=== PATIENT | male | born 1955 | race Caucasian/White ===

== ENCOUNTER 2020-12-08 02:08 | Observation (INO) | payer BC ==
--- NOTE | 2020-12-08 02:40 | ED ---
Chest Pain HPI - General Chief Complaint: Chest Pain Stated Complaint: Chest Pain Time Seen by Provider: 12/08/20 02:14 Source: patient, EMS, RN notes reviewed, old records reviewed Mode of arrival: EMS Limitations: no limitations - History of Present Illness Initial Comments: This is a 65-year-old male to the ER for evaluation patient accepted in transfer for chest pain, patient has history of chest pain history of CAD coming in for chest pain. Patient has no significant medical history and per transfer paperwork patient did have elevated troponin chest pain at prior facility. MD Complaint: chest pain -: hour(s) Onset: during rest, during exertion Pain Location: left chest Pain Radiation: none Severity: moderate Severity scale (1-10): 4 Quality: aching, heaviness Consistency: constant Improves With: nothing Worsens With: nothing Context: other (none) Other Symptoms: palpitations Treatments Prior to Arrival: none - Related Data Allergies Allergy/AdvReac Type Severity Reaction Status Date / Time No Known Allergies Allergy Verified 12/08/20 02:48 Review of Systems ROS Statement: Those systems with pertinent positive or pertinent negative responses have been documented in the HPI. ROS Other: All systems not noted in ROS Statement are negative. EKG Findings - EKG Comments: EKG Findings:: EKG shows sinus rhythm 61 year 176 QRS 116 QTC 417 Past Medical History Past Medical History: No Reported History History of Any Multi-Drug Resistant Organisms: None Reported Additional Past Surgical History / Comment(s): Gall bladder removed "before 1999" Past Psychological History: No Psychological Hx Reported Smoking Status: Former smoker Past Alcohol Use History: None Reported Past Drug Use History: Marijuana General Exam Limitations: no limitations General appearance: alert, in no apparent distress Head exam: Present: atraumatic, normocephalic, normal inspection Eye exam: Present: normal appearance, PERRL, EOMI. Absent: scleral icterus, conjunctival injection, periorbital swelling ENT exam: Present: normal exam, mucous membranes moist Neck exam: Present: normal inspection. Absent: tenderness, meningismus, lymphadenopathy Respiratory exam: Present: normal lung sounds bilaterally. Absent: respiratory distress, wheezes, rales, rhonchi, stridor Cardiovascular Exam: Present: regular rate, normal rhythm, normal heart sounds. Absent: systolic murmur, diastolic murmur, rubs, gallop, clicks GI/Abdominal exam: Present: soft, normal bowel sounds. Absent: distended, tenderness, guarding, rebound, rigid Extremities exam: Present: normal inspection, full ROM, normal capillary refill. Absent: tenderness, pedal edema, joint swelling, calf tenderness Back exam: Present: normal inspection Neurological exam: Present: alert, oriented X3, CN II-XII intact Psychiatric exam: Present: normal affect, normal mood Skin exam: Present: warm, dry, intact, normal color. Absent: rash Course Vital Signs 12/08/20 02:10 Temperature 98.0 F Pulse Rate 63 Respiratory 18 Rate Blood Pressure 129/86 O2 Sat by Pulse 97 Oximetry - Reevaluation(s) Reevaluation #1: 12/08/20 03:04 Medical record is reviewed 12/08/20 03:05 Transfer paperwork is reviewed Also spoke with transferring physician Reevaluation #2: 12/08/20 03:04 Patient has persistent chest pain here in the ER although improved from initial Reevaluation #3: 12/08/20 03:05 Patient informed of results and plan, questions answered - Consultations Consultation #1: Spoke with EM to agrees to admit the patient Chest Pain MDM - MDM 65 male to the ER for chest pain, mildly elevated troponin at prior facility, patient be admitted for chest pain observation and treatment Disposition Clinical Impression: Chest pain, Acute non-ST elevation myocardial infarction (NSTEMI) Disposition: ADMITTED IP TO THIS HOSP Condition: Undetermined Is patient prescribed a controlled substance at d/c from ED?: No Referrals: None,Stated [Primary Care Provider] - 1-2 days
[2020-12-08] MEDS ORDERED: ASPIRIN 81 MG PO STA (03:02)
[2020-12-08] MEDS ORDERED: NITROGLYCERIN SL TABS 0.4 MG TAB SUBLINGUAL PRN ×3 (03:02→15:49)
[2020-12-08] MEDS ORDERED: MORPHINE SULFATE 4 MG/ML SYRINGE IV PRN (03:02)
[2020-12-08] MEDS ORDERED: HEPARIN SOD,PORK IN 0.45% NACL 25,000 UNIT in 0.45% NACL 1 250ML.BAG IV SCH (03:15)
[2020-12-08] MEDS: SODIUM CHLORIDE 0.9% 1,000 ML IV SCH (03:40)
[2020-12-08] MEDS ORDERED: ONDANSETRON 4 MG/2 ML VIAL IVP PRN (10:01)
[2020-12-08] MEDS ORDERED: METOPROLOL TARTRATE 12.5 MG TAB PO SCH (10:45)
[2020-12-08] MEDS ORDERED: METOPROLOL TARTRATE 25 MG TAB PO SCH (10:45)
[2020-12-08] MEDS ORDERED: ATORVASTATIN 80 MG TAB PO STA (10:58)
[2020-12-08] MEDS ORDERED: ALPRAZolam 0.5 MG TAB PO PRN (10:58)
[2020-12-08] MEDS ORDERED: ALPRAZolam 0.25 MG TAB PO PRN (10:58)
[2020-12-08] MEDS ORDERED: ASPIRIN 325 MG TAB PO STA (10:58)
[2020-12-08] MEDS ORDERED: SODIUM CHLORIDE 0.9% 1,000 ML in EMPTY BAG 1 BAG IV ONE (10:58)
--- NOTE | 2020-12-08 12:01 | ECHOF ---
Referral Reason:LV function, elevated troponins MEASUREMENTS -------- HEIGHT: 172.7 cm WEIGHT: 96.2 kg BP: RVIDd: 3.1 cm (< 3.3) IVSd: 1.3 cm (0.6 - 1.1) LVIDd: 4.2 cm (3.9 - 5.3) LVPWd: 1.2 cm (0.6 - 1.1) IVSs: 1.8 cm LVIDs: 2.4 cm LVPWs: 1.7 cm LAESV Index (A-L): 13.06 ml/m Ao Diam: 4.3 cm (2.0 - 3.7) AV Cusp: 2.4 cm (1.5 - 2.6) LA Diam: 2.6 cm (2.7 - 3.8) MV EXCURSION: 21.171 mm (> 18.000) MV EF SLOPE: 107 mm/s (70 - 150) EPSS: 0.8 cm MV E Anil: 0.63 m/s MV DecT: 279 ms MV A Anil: 0.58 m/s MV E/A Ratio: 1.09 AR PHT: 483 ms RAP: 5.00 mmHg RVSP: 22.41 mmHg FINDINGS -------- This was a technically good study. The left ventricular size is normal. There is mild concentric left ventricular hypertrophy. Overa ll left ventricular systolic function is moderately impaired with, an EF between 35 - 40 %. Normal LAP Grade 1 Diastolic Dysfunction. Apical anterior LV wall motion is hypokinetic. Apical lateral LV wall motion is hypokinetic. Apical inferior LV wall motion is hypokinetic. Apical septum LV wall motion is hypokinetic. Septal Hypokinesis The right ventricle is normal in size. The left atrial size is normal. Normal LA size by volume 22+/-6 ml/m2. The right atrial size is normal. Lumason used Aortic valve is trileaflet and is mildly thickened. There is mild aortic regurgitation. The mitral valve is normal. The mitral valve leaflets are mildly thickened. There is trace mitral regurgitation. The tricuspid valve appears structurally normal. Trace tricuspid regurgitation present. Right richard tricular systolic pressure is normal at < 35 mmHg. Trace/mild (physiologic) pulmonic regurgitation. 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 IVC Not well visulized. There is no pericardial effusion. CONCLUSIONS -------- 1. The left ventricular size is normal. 2. There is mild concentric left ventricular hypertrophy. 3. Overall left ventricular systolic function is moderately impaired with, an EF between 35 - 40 %. 4. Normal LAP Grade 1 Diastolic Dysfunction. 5. Apical anterior LV wall motion is hypokinetic. 6. Apical lateral LV wall motion is hypokinetic. 7. Apical inferior LV wall motion is hypokinetic. 8. Apical septum LV wall motion is hypokinetic. 9. Septal Hypokinesis 10. Aortic valve is trileaflet and is mildly thickened. 11. There is mild aortic regurgitation. 12. The mitral valve leaflets are mildly thickened. 13. There is trace mitral regurgitation. 14. Trace tricuspid regurgitation present. 15. Trace/mild (physiologic) pulmonic regurgitation. 16. 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 17. There is no pericardial effusion. PIT HOIST OPERATOR: Savita Oneill RDCS
[2020-12-08 12:04] LABS: Glucose,Whole Blood 262 mg/dL (75-99)
[2020-12-08] MEDS: INSULIN ASPART (NovoLOG) 100 UNIT/ML VIAL SQ SCH ×3 (12:08→20:25)
--- NOTE | 2020-12-08 13:12 | P.CRDCN ---
History of Present Illness Consult date: 12/08/20 History of present illness: HISTORY OF PRESENT ILLNESS: This is a 65-year-old male with a past medical history significant for marijuana use and family history of coronary artery disease. 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 We have been asked to see the patient in consultation for elevated troponin. Patient examined at the bedside. Patient was transferred from [facility] secondary to abnormal troponins. Patient initially presented to hospitals due to abdominal pain. Patient states the pain occurred after he ate yesterday on 2 separate occasions. He states he then developed pain in his left arm and his chest. Patient does report increased pain when he presses on his chest. He currently denies shortness of breath. He reports mild chest discomfort at the time of examination. EKG reveals sinus mechanism with T wave inversions in anterolateral leads Laboratory data: Troponin 1.440. 1.870. Current home cardiac medications include none Echocardiogram completed reveals ejection fraction 35-40%, apical anterior, apical lateral, apical inferior, and apical septal LV wall hypokinesis, septal hypokinesis, trace mitral regurgitation, and trace tricuspid regurgitation. REVIEW OF SYSTEMS: At the time of my exam: CONSTITUTIONAL: Denies fever or chills. HEENT: Denies blurred vision, vision changes, or eye pain. Denies hemoptysis CARDIOVASCULAR: Denies chest pain. Denies orthopnea. Denies PND. Denies palpitations RESPIRATORY: Denies shortness of breath. GASTROINTESTINAL: Denies abdominal pain. Denies nausea or vomiting. HEMATOLOGIC: Denies bleeding disorders. GENITOURINARY: Denies any blood in urine. SKIN: Denies pruitis. Denies rash. PHYSICAL EXAM: VITAL SIGNS: Reviewed. GENERAL: Well-developed in no acute distress. HEENT: Head is normocephalic. Pupils are equal, round. Sclerae anicteric. Mucous membranes of the mouth are moist. Neck supple. No JVD or thyromegaly LUNGS: Respirations even and unlabored. Lungs essentially clear to auscultation bilaterally. HEART: Regular rate and rhythm. S1 and S2 heard. ABDOMEN: Soft. Nondistended. Nontender. EXTREMITIES: Normal range of motion. No clubbing or cyanosis. Peripheral pulses intact. No lower extremity edema NEUROLOGIC: Awake and alert. Oriented x 3. ASSESSMENT: Non-ST elevated myocardial infarction Marijuana use Family history of coronary artery disease PLAN: Continue IV heparin Add metoprolol, aspirin, and lipitor Patient to undergo cardiac cath today with Dr. Pollack Further recommendations pending patient course Nurse practitioner note has been reviewed by physician. Signing provider agrees with the documented findings, assessment, and plan of care. Past Medical History Past Medical History: No Reported History History of Any Multi-Drug Resistant Organisms: None Reported Additional Past Surgical History / Comment(s): Gall bladder removed "before 1999" Past Psychological History: No Psychological Hx Reported Smoking Status: Former smoker Past Alcohol Use History: None Reported Past Drug Use History: Marijuana Medications and Allergies Home Medications Medication Instructions Recorded Confirmed Type No Known Home Medications 12/08/20 12/08/20 History Allergies Allergy/AdvReac Type Severity Reaction Status Date / Time No Known Allergies Allergy Verified 12/08/20 07:03 Physical Exam Vitals: Vital Signs Temp Pulse Pulse Resp BP BP Pulse Ox 12/08/20 12:00 97.8 F 63 16 117/74 95 12/08/20 09:58 98.0 F 63 16 116/82 94 L 12/08/20 08:00 98.1 F 57 L 16 113/78 94 L 12/08/20 06:30 61 16 127/85 99 12/08/20 03:43 68 16 127/85 98 12/08/20 02:10 98.0 F 63 18 129/86 97 Intake and Output 12/07/20 12/08/20 12/08/20 22:59 06:59 14:59 Intake Total 64.006 Balance 64.006 Intake: Intake, IV Titration 64.006 Amount Heparin Sod,Pork in 0.45% 64.006 NaCl 25,000 unit In 0.45 % NaCl 1 250ml.bag @ 10.4 UNITS/KG/HR 10.001 mls/ hr IV .[facility]H [facility] Rx#: [id number] Other: Weight 96.162 kg Results Cardiac Enzymes 12/08/20 12/08/20 Range/Units 04:30 07:23 Troponin I 1.440 H* 1.870 H* (0.000-0.034) ng/mL Coagulation 12/08/20 Range/Units 09:09 APTT 31.2 H (22.0-30.0) sec Current Medications Generic Name Dose Route Start Last Admin Trade Name Freq PRN Reason Stop Dose Admin Alprazolam 0.25 mg 12/08/20 10:58 Alprazolam 0.25 Mg Tab PO Q6HR PRN Mild Anxiety Alprazolam 0.5 mg 12/08/20 10:58 Alprazolam 0.5 Mg Tab PO Q6HR PRN Moderate Anxiety Aspirin 81 mg 12/09/20 09:00 Aspirin 81 Mg PO DAILY YANETH Atorvastatin Calcium 80 mg 12/08/20 21:00 Atorvastatin 80 Mg Tab PO HS YANETH Sodium Chloride 1,000 mls @ 20 mls/hr 12/08/20 03:15 12/08/20 03:40 Saline 0.9% IV 20 mls/hr .Q24H YANETH Administration Heparin Sodium/Sodium Chloride 250 mls @ 10.001 mls/hr 12/08/20 03:15 12/08/20 10:00 25,000 unit/ Sodium Chloride IV 13.4 units/kg/hr .Q24H YANETH 12.886 mls/hr Titration Protocol 10.4 UNITS/KG/HR Sodium Chloride 1,000 ml/ IV 1,000 mls @ 96.162 mls/hr 12/08/20 10:58 12/08/20 11:16 Solution IV 12/08/20 21:21 96.162 mls/hr .[id number] ONE Administration 1 ML/KG/HR Heparin Sodium (Porcine) 10, 1,001 mls @ 999 mls/hr 12/09/20 07:00 000 unit/ Sodium Chloride IRRIGATION 12/09/20 23:00 ONCE PRN INTRA-OP Heparin Sodium (Porcine) 2,500 250.5 mls @ 250 mls/hr 12/09/20 07:00 unit/ Sodium Chloride IRRIGATION 12/09/20 23:00 ONCE PRN INTRA-OP Insulin Aspart 0 unit 12/08/20 12:30 12/08/20 12:08 Insulin Aspart (Novolog) 100 Unit/Ml Vial SQ 4 unit ACHS YANETH Administration Protocol Metoprolol Tartrate 12.5 mg 12/08/20 10:45 12/08/20 11:15 Metoprolol Tartrate 12.5 Mg Tab PO 12.5 mg BID YANETH Administration Morphine Sulfate 4 mg 12/08/20 03:02 Morphine Sulfate 4 Mg/Ml Syringe IV Q4HR PRN Chest Pain Nitroglycerin 0.4 mg 12/08/20 03:02 Nitroglycerin Sl Tabs 0.4 Mg Tab SUBLINGUAL Q5M PRN Chest Pain Ondansetron HCl 4 mg 12/08/20 10:01 12/08/20 10:18 Ondansetron 4 Mg/2 Ml Vial IVP 4 mg Q6HR PRN Administration Nausea And Vomiting Intake and Output 12/07/20 12/08/20 12/08/20 22:59 06:59 14:59 Intake Total 64.006 Balance 64.006 Intake: Intake, IV Titration 64.006 Amount Heparin Sod,Pork in 0.45% 64.006 NaCl 25,000 unit In 0.45 % NaCl 1 250ml.bag @ 10.4 UNITS/KG/HR 10.001 mls/ hr IV .Q24H [facility] Rx#: [id number] Other: Weight 96.162 kg
[2020-12-08] MEDS ORDERED: LIDOCAINE 1% INJ 10MG/ML (20 ML MDV) ONE (13:31)
[2020-12-08] MEDS ORDERED: fentaNYL (PF) 50 MCG/ML 2 ML AMP ONE (13:31)
[2020-12-08] MEDS: MIDAZOLAM 2 MG/2 ML VIAL IVP ONE ×2 (13:38→14:48)
[2020-12-08] MEDS ORDERED: LIDOCAINE 1% INJ 10MG/ML (20 ML MDV) SQ ONE (13:38)
[2020-12-08] MEDS ORDERED: fentaNYL (PF) 50 MCG/ML 2 ML AMP IVP ONE (13:38)
[2020-12-08] MEDS ORDERED: IV FLUID CONTINUATION 1,000 ML IV ONE (13:41)
--- NOTE | 2020-12-08 14:22 | CC ---
CARDIAC CATHETERIZATION REPORT INDICATION: Acute non ST-segment elevation LA. PROCEDURE NOTE: After obtaining informed consent, left heart catheterization and coronary angiogram were performed via the right femoral artery using standard Amanda catheters. The patient tolerated the procedure well without any obvious immediate complications. Patient received moderate conscious sedation. Total sedation time was 13 minutes. FINDINGS: HEMODYNAMICS: Left ventricular end-diastolic pressure is 8 to 10 mm. There is no significant gradient across the aortic valve. LEFT VENTRICULOGRAM: Not performed. ANGIOGRAPHIC DATA: The left main coronary artery: Left main coronary artery is a normal-sized vessel and is free of stenosis. Divides into left anterior descending coronary artery and circumflex coronary artery. CIRCUMFLEX CORONARY ARTERY: Circumflex coronary artery is a nondominant vessel and the AV groove circ shows about 70% focal stenosis. LEFT ANTERIOR DESCENDING CORONARY ARTERY: Proximal LAD shows a 90% focal stenosis. Mid LAD shows another focal 90% stenosis. RIGHT CORONARY ARTERY: Right coronary artery is a large dominant vessel and is free of significant disease. CONCLUSION: 90% stenosis involving proximal and mid LAD and 70% stenosis involving circumflex coronary artery. PLAN: Patient will undergo angioplasty with stent placement of LAD and we will manage the circ lesion medically and perform a stress test down the road and if he has ischemia, consider revascularization. MMODL / IJN: [id number] /
[2020-12-08] MEDS ORDERED: PRASUGREL 10 MG TAB ONE (14:36)
[2020-12-08] MEDS ORDERED: PRASUGREL 10 MG TAB PO ONE (14:43)
[2020-12-08] MEDS ORDERED: HEPARIN SODIUM 1,000 UN/ML (10ML VL) ONE (14:44)
[2020-12-08] MEDS: HEPARIN SODIUM 1,000 UN/ML (10ML VL) IV ONE ×2 (14:44→15:40)
[2020-12-08] MEDS ORDERED: IOPAMIDOL-370 125ML BTL INJ ONE ×2 (15:04→15:37)
[2020-12-08] MEDS ORDERED: MIDAZOLAM 2 MG/2 ML VIAL IVP ONE (15:26)
[2020-12-08] MEDS ORDERED: RX INFO: IV CONTRAST WAS GIVEN 1 EACH MISC MISCELLANE PRN (15:49)
[2020-12-08] MEDS ORDERED: ZOLPIDEM 5 MG TAB PO PRN (15:49)
[2020-12-08] MEDS ORDERED: ATROPINE SULFATE 0.1 MG/ML 10ML SYRINGE IV PRN (15:49)
[2020-12-08] MEDS ORDERED: MAG HYDROX/AL HYDROX/SIMETH 30 ML CUP PO PRN (15:49)
[2020-12-08] MEDS ORDERED: SODIUM CHLORIDE 0.9% 1,000 ML IV SCH (16:00)
--- NOTE | 2020-12-08 16:23 | PTCA ---
PERCUTANEOUSTRANS CORORONARY ANGIOGRAPHY Mr. Kan is a 65-year-old male who has not seen a physician in a while. He presented with symptoms of chest pain and evidence of non-STEMI. He underwent cardiac catheterization by Dr. Pollack and was found to have a heavily calcified LAD with significant obstructive disease. In view of that, recommendation was made regarding angioplasty and stenting. The procedure as well as its risks and the complications were discussed with the patient, who was in full understanding and agreement. PROCEDURE: A 6-[place] FL4-1/2 guiding catheter was introduced into the system. After stenting the left main, a 0.014 balanced medium weight J-wire was advanced across the lesion and positioned distally. Subsequently a 3.0 x 12 mm NC Trek balloon was advanced. It could not cross the distal lesion. The proximal lesion was dilated at 10 atmospheres. Following that the balloon was removed and a 2.0 x 12 mm Trek balloon was advanced, and inflation in the distal lesion at 10 atmospheres was done. Following that the balloon was removed and the NC 3.0 x 12 was advanced and inflations in distal stent at maximum of 12 atmospheres were done. Following that, the balloon was removed and a 3.25 x 38 mm Xience Skypoint was advanced, deployed and post-dilated at 16 atmospheres. Following that the balloon was removed and an IVUS [place] Eye catheter was introduced and images were obtained. Following that, the catheter was removed and a 4.0 x 20 mm NC Trek balloon was advanced. Inflations throughout the stent were done at maximum of 14 atmospheres. Following that the balloon was removed. The guidewire was removed. Images were obtained and repeated. Those images revealed stable successful stenting. At that point, the patient complained of some shoulder discomfort. In view of that, the guiding catheter was reintroduced and the vessel was rewired. The IVUS catheter was reintroduced. Images were obtained and revealed no evidence of dissection. At that point his symptoms resolved. The guiding catheter, the balloon and the guidewire were removed. The sheath was removed. Hemostasis was obtained with deployment of an Angio- Seal. There was no immediate complication. The patient was returned to his room in stable condition. Of note, the patient received a total of 9000 units of intravenous heparin. His ACT was followed and he received an oral loading dose of Effient. RESULTS: Successful stenting of a long segment of the proximal, heavily calcified LAD with reduction of stenosis from 95% to 0%. RECOMMENDATIONS: Patient will be continued on aspirin, Effient, beta cristofer, CORBY inhibitor and statin. The importance of dual antiplatelet treatment was discussed with the patient, who is in full understanding and agreement. Duration of the procedure was 49 minutes. FABY / AMARILYS: [id number] / MTDD
[2020-12-08 17:52] LABS: Glucose,Whole Blood 167 mg/dL (75-99)
[2020-12-08] MEDS: METOPROLOL TARTRATE 25 MG TAB PO SCH (20:25)
[2020-12-08 20:26] LABS: Glucose,Whole Blood 233 mg/dL (75-99)
[2020-12-08] MEDS ORDERED: ATORVASTATIN 80 MG TAB PO SCH (21:00)
[2020-12-08 22:18] LABS: Appearance,Urine Clear (Clear); Bilirubin,Urine Negative (Negative); Blood,Urine Negative (Negative); Color,Urine Yellow; Glucose,Urine (UA) 4+ (Negative); Ketones,Urine Negative (Negative); Leukocyte Esterase,Urine Negative (Negative); Nitrite,Urine Negative (Negative); Protein,Urine Negative (Negative); Specific Gravity,Urine 1.034 (1.001-1.035); Urobilinogen,Urine <2.0 mg/dL (<2.0)
--- NOTE | 2020-12-09 01:38 | P.HPIM ---
History of Present Illness H&P Date: 12/08/20 Chief Complaint: Elevated Troponins, transfer for [place] Mr. Kan is a 65-year-old male with significant family history of coronary artery disease, marijuana use transferred from [facility] for elevation of troponins. Patient states that he initially went to the hospital for complaints of abdominal pain, he thought that it was related to his food that he ate. Eventually patient started to have left-sided chest pain and arm pain with mild nausea. The patient did not throw up. He denies having any dizziness or loss of consciousness. Patient denies having any difficulty in breathing associated with the chest pain. Patient states that he does not take any medications at home and does not follow-up with. Patient denies having any fevers chills or rigors. No cough or difficulty breathing. No sick contacts or recent travel. Patient denies having lower extremity edema. He denies having any headache, blurring of vision, hearing loss, speech abnormalities. No neck pain or back pain. He denies having any abdominal pain nausea vomiting or diarrhea. No dysuria or hematuria. In the ER patient had an EKG notable for sinus rhythm. He had an echocardiogram done showing ejection fraction of 35 to 40% with grade 1 diastolic dysfunction and global hypokinesis. On reviewing his labs his troponins were elevated at 1.44 and repeat of 1.87. Cardiology was consulted and the patient was taken to the [facility] later this afternoon and he had successful stenting of long segment of proximal heavily calcified LAD and the patient was initiated on aspirin, beta-cristofer, CORBY inhibitor and statin and Effient. Review of Systems REVIEW OF SYSTEMS: CONSTITUTIONAL: No fever, no malaise, no fatigue. HEENT: No headache, no neck stiffness, no blurring of vision CARDIOVASCULAR: As per HPI PULMONARY: No cough or difficulty in breathing GASTROINTESTINAL: No Abdominal pain nausea vomiting or diarrhea NEUROLOGICAL: No weakness of extremities HEMATOLOGICAL: Denies any bleeding or petechiae. GENITOURINARY: Denies any burning micturition, frequency, or urgency. MUSCULOSKELETAL/RHEUMATOLOGICAL: Denies any joint pain, swelling, or any muscle pain. ENDOCRINE: Denies polyuria polydipsia or heat or cold intolerance The rest of the 14-point review of systems is negative. Past Medical History Past Medical History: No Reported History History of Any Multi-Drug Resistant Organisms: None Reported Additional Past Surgical History / Comment(s): Gall bladder removed "before 1999" Past Psychological History: No Psychological Hx Reported Smoking Status: Former smoker Past Alcohol Use History: None Reported Past Drug Use History: Marijuana Medications and Allergies Home Medications Medication Instructions Recorded Confirmed Type Aspirin 81 mg PO DAILY #30 chew 12/09/20 Rx Atorvastatin [Lipitor] 80 mg PO HS #30 tab 12/09/20 Rx Metoprolol Tartrate [Lopressor] 25 mg PO BID #60 tab 12/09/20 Rx Nitroglycerin Sl Tabs [Nitrostat] 0.4 mg SUBLINGUAL Q5M PRN #20 tab 12/09/20 Rx Prasugrel [Effient] 10 mg PO DAILY #30 tab 12/09/20 Rx Spironolactone [Aldactone] 25 mg PO DAILY #30 tab 12/09/20 Rx lisinopriL [Zestril] 2.5 mg PO BID #60 tab 12/09/20 Rx Allergies Allergy/AdvReac Type Severity Reaction Status Date / Time No Known Allergies Allergy Verified 12/08/20 07:03 Physical Exam Vitals: Vital Signs Temp Pulse Pulse Resp BP BP Pulse Ox 12/08/20 16:55 55 L 16 115/77 98 12/08/20 16:40 56 L 16 118/77 98 12/08/20 16:25 54 L 16 108/74 98 12/08/20 16:10 54 L 16 119/67 98 12/08/20 15:55 58 L 16 125/82 98 12/08/20 12:00 97.8 F 63 16 117/74 95 12/08/20 09:58 98.0 F 63 16 116/82 94 L 12/08/20 08:00 98.1 F 59 L 16 113/78 94 L 12/08/20 06:30 61 16 127/85 99 12/08/20 03:43 68 16 127/85 98 12/08/20 02:10 98.0 F 63 18 129/86 97 Intake and Output 12/08/20 12/08/20 12/08/20 06:59 14:59 22:59 Intake Total 164.006 Output Total 1000 Balance 164.006 -1000 Intake: IV 100 Intake, IV Titration 64.006 Amount Heparin Sod,Pork in 0.45% 64.006 NaCl 25,000 unit In 0.45 % NaCl 1 250ml.bag @ 10.4 UNITS/KG/HR 10.001 mls/ hr IV .Q24H [facility] Rx#: [id number] Output: Urine 1000 Other: # Voids 1 Weight 96.162 kg PHYSICAL EXAMINATION: GENERAL: Comfortably lying up in the bed appears to be no acute distress. Warm to touch, acutely ill-appearing HEENT: Pupils are round and equally reacting to light. EOMI. No scleral icterus. No conjunctival pallor. CARDIOVASCULAR: S1 and S2 present. No murmurs, rubs, or gallops. PULMONARY: Bilateral breath sounds positive. No wheeze or crackles.. ABDOMEN: Soft,non -tender, normal bowel sounds. No guarding or rigidity. MUSCULOSKELETAL: No joint swelling or deformity. EXTREMITIES: No edema NEUROLOGICAL: Gross neurological examination did not reveal any focal deficits. SKIN:No rash Results CBC & Chem 7: 12/09/20 08:03 12/09/20 08:03 Labs: Abnormal Lab Results - Last 24 Hours (Table) 12/08/20 12/08/20 12/08/20 Range/Units 04:30 07:23 09:09 APTT 31.2 H (22.0-30.0) sec POC Glucose (mg/dL) (75-99) mg/dL Troponin I 1.440 H* 1.870 H* (0.000-0.034) ng/mL 12/08/20 Range/Units 12:03 APTT (22.0-30.0) sec POC Glucose (mg/dL) 262 H (75-99) mg/dL Troponin I (0.000-0.034) ng/mL Assessment and Plan Assessment: ASSESSMENT Non-ST elevation MD Significant family history of coronary artery disease Marijuana use PLAN: Patient had an echocardiogram done showing ejection fraction of 35 to 40%, his troponins were elevated. Patient was taken to [facility] and earlier this afternoon had stenting of LAD and started on dual antiplatelet therapy, statin, beta-cristofer, CORBY inhibitor. We will repeat a.m. labs. Further recommendations depending on the progress of the patient.
[2020-12-09 01:43] VITALS: RESP 18
[2020-12-09] MEDS: SODIUM CHLORIDE 0.9% 1,000 ML IV SCH (05:23)
[2020-12-09 06:13] LABS: Glucose,Whole Blood 220 mg/dL (75-99)
[2020-12-09] MEDS: INSULIN ASPART (NovoLOG) 100 UNIT/ML VIAL SQ SCH ×2 (06:31→12:33)
[2020-12-09] MEDS ORDERED: HEPARIN SODIUM,PORCINE 10,000 UNIT in SODIUM CHLORIDE 0.9% 1,000 ML IRRIGATION PRN (07:00)
[2020-12-09] MEDS ORDERED: HEPARIN SODIUM,PORCINE 2,500 UNIT in SODIUM CHLORIDE 0.9% 250 ML IRRIGATION PRN (07:00)
[2020-12-09 08:39] LABS: Basophils % (A) 0 %; Eosinophils # (A) 0.2 k/uL (0-0.7); Eosinophils % (A) 2 %; HCT 49.2 % (39.0-53.0); HGB 16.6 gm/dL (13.0-17.5); Lymphocytes % (A) 17 %; MCH 33.1 pg (25.0-35.0); MCHC 33.7 g/dL (31.0-37.0); MCV 98.2 fL (80.0-100.0); Mean Platelet Volume 7.7; Monocytes # (A) 0.7 k/uL (0-1.0); Monocytes % (A) 6 %; Neutrophils # (A) 8.9 k/uL (1.3-7.7); Neutrophils % (A) 75 %; Platelet Count 301 k/uL (150-450); RBC 5.01 m/uL (4.30-5.90); RDW 12.6 % (11.5-15.5); WBC 11.9 k/uL (3.8-10.6)
[2020-12-09 08:49] LABS: African American GFR (CKD) >90 (>60 ml/min/1.73 sqM); Anion Gap 7 mmol/L; Blood Urea Nitrogen 23 mg/dL (9-20); Calcium 9.8 mg/dL (8.4-10.2); Carbon Dioxide 30 mmol/L (22-30); Chloride 101 mmol/L (98-107); Glucose 196 mg/dL (74-99); Non-African American GFR(CKD) >90 (>60 ml/min/1.73 sqM); Potassium 4.2 mmol/L (3.5-5.1); Sodium 138 mmol/L (137-145)
[2020-12-09] MEDS ORDERED: PRASUGREL 10 MG TAB PO SCH (09:00)
[2020-12-09] MEDS ORDERED: FAMOTIDINE 20 MG/2 ML VIAL IV SCH (09:00)
[2020-12-09] MEDS ORDERED: ASPIRIN 325 MG TAB PO SCH (09:00)
[2020-12-09] MEDS ORDERED: ASPIRIN 81 MG PO SCH ×2 (09:00)
[2020-12-09] MEDS ORDERED: SPIRONOLACTONE 25 MG TAB PO SCH (09:00)
[2020-12-09] MEDS: METOPROLOL TARTRATE 25 MG TAB PO SCH (09:11)
[2020-12-09 10:29] VITALS: TEMP 98.7
[2020-12-09 11:38] VITALS: BMI 27.1
[2020-12-09 11:44] LABS: Glucose,Whole Blood 225 mg/dL (75-99)
[2020-12-09 13:03] VITALS: BP 143/76; PULSE 61
--- NOTE | 2020-12-09 14:14 | P.PN ---
Subjective Progress Note Date: 12/09/20 HISTORY OF PRESENT ILLNESS: This is a 65-year-old male with a past medical history significant for marijuana use and family history of coronary artery disease. Patient does not follow with a plexiglas former. We have been asked to see the patient in consultation for elevated troponin. Patient examined at the bedside. Patient was transferred from [facility] secondary to abnormal troponins. Patient initially presented to hospitals due to abdominal pain. Patient states the pain occurred after he ate yesterday on 2 separate occasions. He states he then developed pain in his left arm and his chest. Patient does report increased pain when he presses on his chest. He currently denies shortness of breath. He reports mild chest discomfort at the time of examination. EKG reveals sinus mechanism with T wave inversions in anterolateral leads Laboratory data: Troponin 1.440. 1.870. Current home cardiac medications include none Echocardiogram completed reveals ejection fraction 35-40%, apical anterior, apical lateral, apical inferior, and apical septal LV wall hypokinesis, septal hypokinesis, trace mitral regurgitation, and trace tricuspid regurgitation. 12/09/2020 Patient is status post cardiac catheterization with PCI to the LAD. Patient examined this morning at the bedside. Patient denies chest pain or pressure. He denies shortness of breath. Vital signs are stable. He is hoping to be discharged home today. PHYSICAL EXAM: VITAL SIGNS: Reviewed. GENERAL: Well-developed in no acute distress. HEENT: Head is normocephalic. Pupils are equal, round. Sclerae anicteric. Mucous membranes of the mouth are moist. Neck supple. No JVD or thyromegaly LUNGS: Respirations even and unlabored. Lungs essentially clear to auscultation bilaterally. HEART: Regular rate and rhythm. S1 and S2 heard. ABDOMEN: Soft. Nondistended. Nontender. EXTREMITIES: Normal range of motion. No clubbing or cyanosis. Peripheral pulse s intact. No lower extremity edema. Right groin soft with no hematoma noted. NEUROLOGIC: Awake and alert. Oriented x 3. ASSESSMENT: Non-ST elevated myocardial infarction, status post PCI to LAD Marijuana use Family history of coronary artery disease PLAN: Continue dual antiplatelet therapy Continue additional cardiac medications Patient is stable for discharge home today from a cardiac standpoint He is to follow up outpatient with Dr. Pollack Nurse practitioner note has been reviewed by physician. Signing provider agrees with the documented findings, assessment, and plan of care. Objective - Vital Signs Vital signs: Vital Signs Temp 98.7 F 12/09/20 08:00 Pulse 61 12/09/20 12:00 Resp 18 12/09/20 04:00 BP 143/76 12/09/20 12:00 Pulse Ox 98 12/09/20 12:00 Intake & Output 12/08/20 12/09/20 12/09/20 18:59 06:59 18:59 Intake Total 164.006 840 Output Total 1700 700 Balance -1535.994 -700 840 Weight 96.162 kg 80.9 kg 80.9 kg Intake: IV 100 Intake, IV Titration 64.006 Amount Heparin Sod,Pork in 0.45% 64.006 NaCl 25,000 unit In 0.45 % NaCl 1 250ml.bag @ 10.4 UNITS/KG/HR 10.001 mls/ hr IV .Q24H [facility] Rx#: [id number] Oral 840 Output: Urine 1700 700 Other: Voiding Method Urinal # Voids 1 1 1 # Bowel Movements 1 - Labs CBC & Chem 7: 12/09/20 08:03 12/09/20 08:03 Labs: Abnormal Lab Results - Last 24 Hours (Table) 12/08/20 12/08/20 12/08/20 Range/Units 17:50 20:25 21:52 WBC (3.8-10.6) k/uL Neutrophils # (1.3-7.7) k/uL BUN (9-20) mg/dL Glucose (74-99) mg/dL POC Glucose (mg/dL) 167 H 233 H (75-99) mg/dL Urine Glucose (UA) 4+ H (Negative) 12/09/20 12/09/20 12/09/20 Range/Units 06:12 08:03 08:03 WBC 11.9 H (3.8-10.6) k/uL Neutrophils # 8.9 H (1.3-7.7) k/uL BUN 23 H (9-20) mg/dL Glucose 196 H (74-99) mg/dL POC Glucose (mg/dL) 220 H (75-99) mg/dL Urine Glucose (UA) (Negative) 12/09/20 Range/Units 11:42 WBC (3.8-10.6) k/uL Neutrophils # (1.3-7.7) k/uL BUN (9-20) mg/dL Glucose (74-99) mg/dL POC Glucose (mg/dL) 225 H (75-99) mg/dL Urine Glucose (UA) (Negative)
[2020-12-09 14:28] LABS: Chol/HDL Ratio 3.5; LDL Cholesterol,Calculated 72.4 mg/dL (0.0-131.0); VLDL Calculation 22.6 mg/dL (5.00-40.00)
--- NOTE | 2020-12-10 01:00 | P.DS ---
Providers Date of admission: 12/08/20 03:02 Attending physician: Bo Couch Consults: 12/08/20 03:02 Consult Physician Urgent Consulting Provider: Jose Guadalupe Mejia Consult Reason/Comments: cp Do you want consulting provider notified?: Yes 12/08/20 15:49 Consult Physician Routine Consulting Provider: [facility] Consult Reason/Comments: Post Interventional patient Do you want consulting provider notified?: Already Contacted Primary care physician: Stated None Hospital Course: Diagnoses: None STEMI status post PCI of the LAD Ischemic cardiomyopathy with ejection fraction of 35-40% with no overt signs and symptoms of systolic CHF Hyperglycemia, patient was instructed with diabetic diet and follow-up with PCP to check his hemoglobin A1c for proper diagnosis and he agrees Hospital course This is a pleasant 65 years old male who presents with signs symptoms of non- STEMI and chest pain found to have lesion and stenosis of his LAD status post PCI and stent placement of his LAD by cardiology team. Post or seizure patient was doing well. He denies chest pain or dyspnea. No dizziness. No headache. No change in urine or bowel habits. No fever. Patient wanted to go home today and does not want to wait in the hospital any further. His glucose was noted to slightly elevated around 200, however he does not want to wait to check for his hemoglobin A1c and since he can follow-up as an outpatient. Patient does not have PCP however he was instructed to call his medical insurance provider to find a nearby PCP and to call and make appointment in 1 week and he agrees. Also the importance of adherence to treatment including aspirin and Effient are explained for the patient extensively and he agreed. Patient is back to baseline and he thinks he is ready for discharge pt Was cleared for discharge by customer field representative Problems and management plan were discussed with the patient and he verbalized understanding and acceptance Patient was found stable and can be discharged home however he needs follow-up as an outpatient. Patient was instructed to follow up with PCP within one week and patient agrees Patient was instructed to follow up with his customer field representative Dr. Pollack in one week and he agrees. Staff contacted the office was informed they will call the patient for appointment Physical exam Gen: patient is a AAOx3, no distress CVS: S1-S2, RRR, no murmur Lungs: B/L CTA, no wheezing Abdomen: soft, no distention, no tenderness, positive bowel sounds Extremity: no leg edema or induration Time spent more than 35 minutes Patient Condition at Discharge: Undetermined Plan - Discharge Summary Discharge Rx Participant: No New Discharge Prescriptions: New Spironolactone [Aldactone] 25 mg PO DAILY #30 tab Aspirin 81 mg PO DAILY #30 chew Prasugrel [Effient] 10 mg PO DAILY #30 tab Atorvastatin [Lipitor] 80 mg PO HS #30 tab Metoprolol Tartrate [Lopressor] 25 mg PO BID #60 tab lisinopriL [Zestril] 2.5 mg PO BID #60 tab Nitroglycerin Sl Tabs [Nitrostat] 0.4 mg SUBLINGUAL Q5M PRN #20 tab PRN Reason: Chest Pain Discharge Medication List Aspirin 81 mg PO DAILY #30 chew 12/09/20 [Rx] Atorvastatin [Lipitor] 80 mg PO HS #30 tab 12/09/20 [Rx] Metoprolol Tartrate [Lopressor] 25 mg PO BID #60 tab 12/09/20 [Rx] Nitroglycerin Sl Tabs [Nitrostat] 0.4 mg SUBLINGUAL Q5M PRN #20 tab 12/09/20 [Rx] Prasugrel [Effient] 10 mg PO DAILY #30 tab 12/09/20 [Rx] Spironolactone [Aldactone] 25 mg PO DAILY #30 tab 12/09/20 [Rx] lisinopriL [Zestril] 2.5 mg PO BID #60 tab 12/09/20 [Rx] Follow up Appointment(s)/Referral(s): None,Stated [Primary Care Provider] - 1-2 days Yonas Pollack MD [STAFF PHYSICIAN] - 1 Week (The office will call you with appointment date and time.) Patient Instructions/Handouts: *Surgery [facility] - After Heart Catheterization - Solution Advisor Instructions, Heart Attack (DC) Activity/Diet/Wound Care/Special Instructions: heart healthy diet ; diabetic low carbohydrate diet 1800 kcal per day activity is restricted till you see your doctor Please call your medical insurance provider to find a nearby PCP, primary care doctor, and make an appointment in 1 week. We recommend to check for diabetes for example hemoglobin A1c with her doctor Discharge Disposition: HOME SELF-CARE
== END 2020-12-09 16:32 | disposition home or self-care (01) ==
LOC: EC 02:08 → INTOOBSV 03:02 → 3SCARD 03:02 → UNDODISIN 12-09 16:32
PROVIDERS: ADMIT Hospitalist; ATTEND Hospitalist
PROC: B240ZZ3 Ultrasonography of Single Coronary Artery, Intravascular (ICD-10-PCS; 2020-12-08)
PROC: 027034Z Dilation of Coronary Artery, One Artery with Drug-eluting Intraluminal Device, Percutaneous Approach (ICD-10-PCS; principal; 2020-12-08 14:00)
PROC: 4A023N7 Measurement of Cardiac Sampling and Pressure, Left Heart, Percutaneous Approach (ICD-10-PCS; 2020-12-08 14:00)
PROC: B2111ZZ Fluoroscopy of Multiple Coronary Arteries using Low Osmolar Contrast (ICD-10-PCS; 2020-12-08 14:00)
DX: I21.4 Non-ST elevation (NSTEMI) myocardial infarction (principal); I25.84 Coronary atherosclerosis due to calcified coronary lesion; I25.10 Atherosclerotic heart disease of native coronary artery without angina pectoris; I25.5 Ischemic cardiomyopathy; R73.9 Hyperglycemia, unspecified; Z87.891 Personal history of nicotine dependence; Z82.49 Family history of ischemic heart disease and other diseases of the circulatory system
CPT/HCPCS: 96365; 96366; 96375; 99285; 93005; 93306; 92979; 93458; 80061; 80048; 84484; 85025; 85730; 81003; G0378 ×2; C9600; C1769 ×3; C1760; C1887; C1725 ×3; C1894; C1753; C1874 ×2; J2250; J2405; J2001; J3010; J1644 ×2; Q9950; Q9967